=== PATIENT | male | born 1975 | race Caucasian/White ===

== ENCOUNTER 2019-01-27 20:22 | Emergency (ER) | payer BC ==
[~2019-01-27] VITALS: Ht 172.7 cm; Wt 97.5 kg
[2019-01-27 20:35] VITALS: Ht 172.7 cm; Wt 97.5 kg
[2019-01-28 00:11] VITALS: BP 154/94
== END 2019-01-28 00:11 | disposition home or self-care (01) ==
LOC: ED 20:22
DX: S00.212A Abrasion of left eyelid and periocular area, initial encounter (principal); S70.311A Abrasion, right thigh, initial encounter; S70.02XA Contusion of left hip, initial encounter; F10.129 Alcohol abuse with intoxication, unspecified; I10 Essential (primary) hypertension; E11.9 Type 2 diabetes mellitus without complications; W10.8XXA Fall (on) (from) other stairs and steps, initial encounter; Y93.89 Activity, other specified; Y92.89 Other specified places as the place of occurrence of the external cause; Y99.8 Other external cause status
CPT/HCPCS: 82962; Q0092